=== PATIENT | male | born 1975 | race African-American/Black ===

== ENCOUNTER 2016-12-03 11:01 | Emergency (ER) | payer MEDICAID ==
[~2016-12-03] VITALS: Ht 185.4 cm; Wt 82.0 kg
[2016-12-03] MEDS ORDERED: SODIUM CHLORIDE 0.9% 1,000 ML IV ONE (11:20)
[2016-12-03 11:43] LABS: BASOPHILS % 1.2 % (0.0-2.0); EOSINOPHILS % 1.4 % (0.0-5.0); HEMATOCRIT. 42.5 % (42.0-52.0); HEMOGLOBIN. 13.7 g/dL (14.0-18.0); MEAN CORPUSCULAR HEMOGLOBIN 30.8 pg (28.0-32.0); MEAN CORPUSCULAR HGB CONC 32.3 g/dL (31.0-37.0); MEAN CORPUSCULAR VOLUME 95.2 fL (80.0-94.0); MEAN PLATELET VOLUME 8.4 fl (7.4-10.4); MONOCYTES % 12.8 % (2.0-8.0); NEUTROPHILS % 17.6 % (40.0-76.0); PLATELET 228 x1000/uL (130-400); RED BLOOD CELL COUNT 4.46 mill/uL (4.7-6.1); RED CELL DISTRIBUTION WIDTH 13.6 % (11.6-14.6); WHITE BLOOD COUNT 3.4 x1000/uL (4.5-11.0)
[2016-12-03 11:45] LABS: ALBUMIN 3.9 g/dL (3.4-5.0); ANION GAP 11; CALCIUM 8.9 mg/dL (8.5-10.1); CARBON DIOXIDE 26 mEq/L (21-32); CHLORIDE 112 mEq/L (98-107); INDEX HEMOLYSI 1 (1-3); INDEX ICTERIC 1 (1-4); INDEX LIPEMIC 1 (1-3); UREA NITROGEN BLOOD 8 mg/dL (7-21)
[2016-12-03 11:50] LABS: ALANINE AMINOTRANSFERASE 17 IU/L (13-61); eGFR 59 mL/min (>60)
[2016-12-03] MEDS ORDERED: ONDANSETRON HCL 4MG/2ML VIAL IV ONE (12:00)
[2016-12-03 15:15] VITALS: BP 107/74
== END 2016-12-03 15:36 | disposition home or self-care (01) ==
LOC: ER 11:07
DX: I95.1 Orthostatic hypotension (principal)
CPT/HCPCS: 36415; 80053; 85025; 93005; 96361; 96374; 99285; J2405; J7030

== ENCOUNTER 2019-03-11 16:18 | Emergency (ER) | payer SELFPAY ==
[~2019-03-11] VITALS: Ht 198.1 cm; Wt 81.0 kg
[2019-03-11] MEDS ORDERED: BACITRACIN ZINC OINT UDPKT TOP ONE (17:15)
[2019-03-11] MEDS ORDERED: LIDOCAINE HCL/PF 1% 10 MG/ML 5ML VIAL IJ ONE (17:15)
[2019-03-11] MEDS ORDERED: SULFAMETHOXAZOLE/TRIMETHOPRIM 800/160MG TABLET PO ONE (19:00)
[2019-03-11 19:26] VITALS: BP 132/74
== END 2019-03-11 19:27 | disposition home or self-care (01) ==
LOC: ER 16:18
DX: S67.193A Crushing injury of left middle finger, initial encounter (principal); L03.011 Cellulitis of right finger; F17.210 Nicotine dependence, cigarettes, uncomplicated; W22.8XXA Striking against or struck by other objects, initial encounter; Y93.89 Activity, other specified; Y92.89 Other specified places as the place of occurrence of the external cause
CPT/HCPCS: 10060; 73140; 99283; J3490

== ENCOUNTER 2019-03-14 11:36 | Emergency (ER) | payer SELFPAY ==
[~2019-03-14] VITALS: Ht 198.1 cm; Wt 82.0 kg
[2019-03-14 15:21] VITALS: BP 110/55
== END 2019-03-14 15:22 | disposition home or self-care (01) ==
LOC: ER 11:36
DX: S61.412D Laceration without foreign body of left hand, subsequent encounter (principal); X58.XXXD Exposure to other specified factors, subsequent encounter; L03.012 Cellulitis of left finger; F17.200 Nicotine dependence, unspecified, uncomplicated; Z98.890 Other specified postprocedural states
CPT/HCPCS: 99281

== ENCOUNTER 2020-01-19 09:38 | Emergency (ER) | payer SELFPAY ==
[~2020-01-19] VITALS: Ht 195.6 cm; Wt 85.0 kg
[2020-01-19] MEDS ORDERED: HYDROCODONE/ACETAMINOPHEN 5/325MG TABLET PO ONE (10:30)
[2020-01-19] MEDS ORDERED: ONDANSETRON 4MG ODT PO ONE (10:30)
[2020-01-19 10:33] VITALS: BP 129/72
== END 2020-01-19 12:02 | disposition home or self-care (01) ==
LOC: ER 09:38
DX: S29.8XXA Other specified injuries of thorax, initial encounter (principal); W22.8XXA Striking against or struck by other objects, initial encounter; Y93.89 Activity, other specified; Y92.89 Other specified places as the place of occurrence of the external cause; Y99.8 Other external cause status
CPT/HCPCS: 71250; 93005; 99284; Q0162

== ENCOUNTER 2022-01-17 12:55 | Emergency (ER) | payer MEDICAID ==
[~2022-01-17] VITALS: Ht 198.1 cm; Wt 84.0 kg
[2022-01-17] MEDS ORDERED: IBUPROFEN 400MG TABLET PO ONE (14:30)
[2022-01-17] MEDS ORDERED: ACETAMINOPHEN 325MG TABLET PO ONE (14:30)
[2022-01-17] MEDS: ACETAMINOPHEN 325MG TABLET PO NR ×2 (16:15→17:30)
[2022-01-17] MEDS ORDERED: IBUPROFEN 400MG TABLET PO NR (16:30)
[2022-01-17] MEDS ORDERED: IBUP-2028 MT (17:41)
[2022-01-17 18:00] VITALS: BP 125/78
== END 2022-01-17 18:00 | disposition home or self-care (01) ==
LOC: ER 12:55
DX: U07.1 COVID-19 (principal)
CPT/HCPCS: 71045; 87426; 99284; C9803

== ENCOUNTER 2024-12-20 10:25 | Emergency (ER) | payer MEDICAID ==
[~2024-12-20] VITALS: Ht 188 cm; Wt 85.0 kg
[~2024-12-20 10:25] MED LIST: IBUP-2028 MT
[2024-12-20 10:27] VITALS: TEMP 36.9; O2SAT 100
[2024-12-20] MEDS: DIPHENHYDRAMINE 50MG/ML VIAL IV ONE (11:09)
[2024-12-20] MEDS: SODIUM CHLORIDE 0.9% 1,000 ML IV ONE (11:12)
[2024-12-20] MEDS: PROCHLORPERAZINE 10MG/2ML VIAL IV ONE (11:13)
[2024-12-20 12:02] LABS: BASOPHILS % 1.2 % (0.0-2.0); EOSINOPHILS % 0.9 % (0.0-5.0); HEMATOCRIT. 36.6 % (42.0-52.0); HEMOGLOBIN. 12.4 g/dL (14.0-18.0); LYMPHOCYTES % 33.8 % (20.0-50.0); MEAN CORPUSCULAR HEMOGLOBIN 31.7 pg (28.0-32.0); MEAN CORPUSCULAR HGB CONC 33.8 g/dL (31.0-37.0); MEAN CORPUSCULAR VOLUME 93.9 fL (80.0-94.0); MEAN PLATELET VOLUME 8.2 fl (7.4-10.4); MONOCYTES % 8.1 % (2.0-8.0); PLATELET 241 x1000/uL (130-400); RED CELL DISTRIBUTION WIDTH 13.7 % (11.6-14.6); WHITE BLOOD COUNT 5.5 x1000/uL (4.5-11.0)
[2024-12-20 12:09] LABS: CHLORIDE 111 mEq/L (98-107); POTASSIUM 4.1 mEq/L (3.5-5.1); SODIUM 139 mEq/L (136-145)
[2024-12-20 12:10] LABS: CALCIUM 9.1 mg/dL (8.7-10.4); CARBON DIOXIDE 24 mEq/L (21-32)
[2024-12-20] MEDS ORDERED: IBUP-2029 MT (12:14)
[2024-12-20] MEDS ORDERED: TOPUD PO (12:14)
[2024-12-20 12:15] LABS: CREATININE 1.2 mg/dL (0.6-1.3); GLUCOSE 92 mg/dL (70-105); UREA NITROGEN BLOOD 9 mg/dL (9-23)
[2024-12-20 12:42] VITALS: BP 143/83; PULSE 76; RESP 18; O2SAT 100
== END 2024-12-20 12:42 | disposition home or self-care (01) ==
LOC: ER 10:25
DX: G43.009 Migraine without aura, not intractable, without status migrainosus (principal)
CPT/HCPCS: 80048; 85025; 36415; 70450; 96361; 96374; 96375; 99285; J1200; J0780; J7030; Z7610